=== PATIENT | male | born 1995 | race Asian ===

== ENCOUNTER 2022-07-01 17:21 | Emergency (ER) | payer OTHER, MEDICARE, MEDICAID ==
[2022-07-01] MEDS ORDERED: Acetaminophen 325 MG/10.15 ML UDCUP ONE (21:23)
== END 2022-07-01 21:38 | disposition short-term general hospital (02) ==
LOC: ERS 17:21
DX: S16.1XXA Strain of muscle, fascia and tendon at neck level, initial encounter (principal); S00.83XA Contusion of other part of head, initial encounter; V49.10XA Passenger injured in collision with unspecified motor vehicles in nontraffic accident, initial encounter; Y92.410 Unspecified street and highway as the place of occurrence of the external cause
CPT/HCPCS: 70450; 72125

== ENCOUNTER 2023-10-01 08:48 | Outpatient (CLI) | payer MEDICARE, MEDICAID | END 2023-10-01 08:49 | disposition home or self-care (01) | LOC: CT 08:48 | PROVIDERS: ATTEND Nurse Practitioner Family | DX: H91.93 Unspecified hearing loss, bilateral (principal); R10.31 Right lower quadrant pain; Q90.9 Down syndrome, unspecified; K59.00 Constipation, unspecified; E03.9 Hypothyroidism, unspecified; R41.89 Other symptoms and signs involving cognitive functions and awareness; K21.9 Gastro-esophageal reflux disease without esophagitis; R01.1 Cardiac murmur, unspecified; R19.5 Other fecal abnormalities; N32.89 Other specified disorders of bladder | CPT/HCPCS: 74178 ==